=== PATIENT | male | born 1940 | race Caucasian/White ===

== ENCOUNTER 2020-12-25 17:45 | Emergency (ER) | payer MEDICARE, OTHER | END 2020-12-25 18:48 | disposition left against medical advice (07) | LOC: ER1 17:45 | DX: Z53.21 Procedure and treatment not carried out due to patient leaving prior to being seen by health care provider (principal) ==

== ENCOUNTER 2020-12-25 19:23 | Emergency (ER) | payer MEDICARE, OTHER | END 2020-12-25 19:55 | disposition left against medical advice (07) | LOC: ER1 19:23 | DX: Z53.21 Procedure and treatment not carried out due to patient leaving prior to being seen by health care provider (principal) ==

== ENCOUNTER 2021-12-14 10:46 | Emergency (ER) | payer MEDICARE, OTHER | END 2021-12-14 11:55 | disposition left against medical advice (07) | LOC: ER1 10:46 | DX: M79.81 Nontraumatic hematoma of soft tissue (principal); I25.10 Atherosclerotic heart disease of native coronary artery without angina pectoris; F17.220 Nicotine dependence, chewing tobacco, uncomplicated | CPT/HCPCS: 81001; 99283 ==

== ENCOUNTER 2021-12-17 23:25 | Inpatient (IN) | payer MEDICARE, OTHER ==
[~2021-12-17] VITALS: Ht 175.3 cm; Wt 90.7 kg
[2021-12-18 00:23] LABS: HEMOGLOBIN 15.7 gm/dl (14.0-17.5); RED BLOOD COUNT 4.97 M/UL (4.20-5.50); WHITE BLOOD COUNT 6.5 K/UL (4.5-11.0)
[2021-12-18 01:09] LABS: BUN/CREATININE RATIO 11 (0-10)
[2021-12-18] MEDS ORDERED: FEXOFENADINE H180 MG PO (11:27)
[2021-12-18] MEDS ORDERED: FOLIC ACID1 MG PO (11:27)
[2021-12-18] MEDS ORDERED: GEMFIBROZIL600 MG PO (11:28)
[2021-12-18] MEDS ORDERED: PRADAXA 150 MG150 MG PO (11:28)
[2021-12-18] MEDS ORDERED: LEVOTHYROXINE112 MCG PO (11:28)
[2021-12-18] MEDS ORDERED: HYDROCHLOROTHIA25 MG PO (11:28)
[2021-12-18] MEDS ORDERED: FLOMAX 0.4 MG0.4 MG PO (11:29)
[2021-12-18] MEDS ORDERED: NAPROXEN500 MG PO (11:29)
[2021-12-18] MEDS ORDERED: METOPROLOL TART25 MG PO (11:29)
[2021-12-19 04:52] LABS: HEMOGLOBIN 14.5 gm/dl (14.0-17.5); RED BLOOD COUNT 4.65 M/UL (4.20-5.50)
[2021-12-19 05:23] LABS: WHITE BLOOD COUNT 4.1 K/UL (4.5-11.0)
--- NOTE | 2021-12-19 09:56 | NUR ---
Bladder Scan on patient complete, patient had 82 ml of urine in his bladder. Dr. Laura made aware.
[2021-12-20 04:48] LABS: HEMOGLOBIN 15.4 gm/dl (14.0-17.5); RED BLOOD COUNT 4.95 M/UL (4.20-5.50); WHITE BLOOD COUNT 4.6 K/UL (4.5-11.0)
[2021-12-20 05:14] LABS: BUN/CREATININE RATIO 15 (0-10)
[2021-12-21 06:21] LABS: HEMOGLOBIN 16.1 gm/dl (14.0-17.5); RED BLOOD COUNT 5.12 M/UL (4.20-5.50); WHITE BLOOD COUNT 5.4 K/UL (4.5-11.0)
[2021-12-21 06:54] LABS: BUN/CREATININE RATIO 18 (0-10)
[2021-12-22 04:44] LABS: HEMOGLOBIN 15.6 gm/dl (14.0-17.5); RED BLOOD COUNT 5.14 M/UL (4.20-5.50); WHITE BLOOD COUNT 5.3 K/UL (4.5-11.0)
[2021-12-22 05:15] LABS: BUN/CREATININE RATIO 21 (0-10)
[2021-12-23 05:40] LABS: HEMOGLOBIN 15.6 gm/dl (14.0-17.5); RED BLOOD COUNT 5.15 M/UL (4.20-5.50)
[2021-12-23 05:56] LABS: BUN/CREATININE RATIO 18 (0-10)
[2021-12-24 05:17] LABS: HEMOGLOBIN 16.5 gm/dl (14.0-17.5); RED BLOOD COUNT 5.32 M/UL (4.20-5.50)
[2021-12-24 05:18] LABS: WHITE BLOOD COUNT 7.6 K/UL (4.5-11.0)
[2021-12-24 06:15] LABS: BUN/CREATININE RATIO 20 (0-10)
--- NOTE | 2021-12-25 04:18 | NUR ---
12/24/21 7PM SHIFT - ATTEMPTED NUMEROUS TIMES TO SEE IF PATIENT WOULD WEAR SHOES HAND SEWER AND SCDS. PT REFUSES EVERYTHING. HE IS PLEASANTLY CONFUSED AND REFUSES TO KEEP HIS GOWN ON. HE PULLS EVERYTHING OFF THROUGHOUT THE SHIFT. BED ALARM IS ACTIVE, PT HAS TRIED NUMEROUS TIMES TO GET OUT OF THE BED. HE ALSO PULLED HIS IV OUT. WILL CONTINUE TO MONITOR THE PATIENT FOR HIS SAFETY.
[2021-12-25 05:43] LABS: HEMOGLOBIN 16.6 gm/dl (14.0-17.5); RED BLOOD COUNT 5.24 M/UL (4.20-5.50)
[2021-12-25 05:44] LABS: WHITE BLOOD COUNT 9.9 K/UL (4.5-11.0)
[2021-12-25 06:23] LABS: BUN/CREATININE RATIO 18 (0-10)
--- NOTE | 2021-12-25 12:06 | NUR ---
reported to dr. khanna patient refused IV restarted and refused of IV antibiotics. dr. khanna verb she will see patient
--- NOTE | 2021-12-25 12:08 | NUR ---
reported to dr. rodriguez call received from telemetry of 9 beats of v tach- dr. rodriguez acknowledged no new order received
--- NOTE | 2021-12-25 13:32 | NUR ---
dr. rodriguez aware of patient low grade fever
--- NOTE | 2021-12-25 18:47 | NUR ---
Obtained in and out cath for urine specimen obtained 250cc urine. patient paulina well.
[2021-12-26 07:11] LABS: HEMOGLOBIN 16.5 gm/dl (14.0-17.5); RED BLOOD COUNT 5.25 M/UL (4.20-5.50); WHITE BLOOD COUNT 10.5 K/UL (4.5-11.0)
[2021-12-26 07:29] LABS: BUN/CREATININE RATIO 22 (0-10)
[2021-12-27 04:28] LABS: HEMOGLOBIN 16.7 gm/dl (14.0-17.5); RED BLOOD COUNT 5.28 M/UL (4.20-5.50); WHITE BLOOD COUNT 9.9 K/UL (4.5-11.0)
[2021-12-27 04:46] LABS: BUN/CREATININE RATIO 23 (0-10)
--- NOTE | 2021-12-28 12:21 | NUR ---
heard in the patient room for help from BLU gunn went in and seen patient slumped on the chair, activate LOAN UNDERWRITER @ 11:54. patient transferred from chair to bed, patient non responsive, pulse present, breathing with 022L in placed, vital signs 117/80. 022L 97% 83 heart rate 91. patient bs 234. dr. reza and dr. jacques pulmonologis on the floor and seen patient. received order to transfer patient to ICU and CTscan of the head with no contrast. @1209 patient responds to daughter, equal irrigator valve pipe of upper extrimities noted,open eyes mumbles. patient move both upper and lower extrimities. vital signs 117/80 83, 20, 91% with 022L via nasal cannula. with this care patient was not given any ativan, no narcotic and prescribed medications due in the morning. patient does not have IV access and md aware.
--- NOTE | 2021-12-28 13:01 | NUR ---
report given to Lissette ICU nurse
[2021-12-28 13:16] LABS: HEMOGLOBIN 17.3 gm/dl (14.0-17.5); RED BLOOD COUNT 5.44 M/UL (4.20-5.50); WHITE BLOOD COUNT 10.3 K/UL (4.5-11.0)
[2021-12-30 11:30] LABS: BUN/CREATININE RATIO 25 (0-10)
[2021-12-31 05:19] LABS: BUN/CREATININE RATIO 26 (0-10)
[2022-01-03 03:53] LABS: HEMOGLOBIN 17.1 gm/dl (14.0-17.5); RED BLOOD COUNT 5.5 M/UL (4.20-5.50); WHITE BLOOD COUNT 8.1 K/UL (4.5-11.0)
[2022-01-03 04:22] LABS: BUN/CREATININE RATIO 28 (0-10)
[2022-01-05] MEDS ORDERED: IPRAT-ALBUT 0.5-3 ML NEB (11:57)
[2022-01-05] MEDS ORDERED: QUETIAPINE FUMA25 MG PO (11:57)
[2022-01-05] MEDS ORDERED: ATIVAN 1MG TABLE1 MG PO (11:58)
--- NOTE | 2022-01-05 14:44 | NUR ---
ESTRELLA CALLED AT [facility]
--- NOTE | 2022-01-05 15:52 | NUR ---
DR. JAVIER STATES INSERT WHITEHEAD CATH AND SEND PT. TO LONG-TERM WITH IT FOR URINARY RETENTION
--- NOTE | 2022-01-05 17:13 | NUR ---
PT PULLING AT WHITEHEAD CATH THAT WAS RECENTLY PLACED AND NOW SOME BLEEDING NOTED IN TUBING.
== END 2022-01-05 17:42 | DRG 177 ==
LOC: ER1 23:25 → M/S 12-18 02:54 → CDU 12-18 02:54 → M/S 12-18 14:15 → CCU 12-28 16:10 → M/S 12-28 20:46
PROVIDERS: Emergency Medicine; Family Medicine; Internal Medicine; ADMIT Internal Medicine
PROC: 8E0ZXY6 Isolation (ICD-10-PCS; principal; 2021-12-18)
PROC: XW033E5 Introduction of Remdesivir Anti-infective into Peripheral Vein, Percutaneous Approach, New Technology Group 5 (ICD-10-PCS; 2021-12-18)
PROC: 3E0333Z Introduction of Anti-inflammatory into Peripheral Vein, Percutaneous Approach (ICD-10-PCS; 2021-12-18)
DX: U07.1 COVID-19 (principal); J12.82 Pneumonia due to coronavirus disease 2019; J96.01 Acute respiratory failure with hypoxia; G93.41 Metabolic encephalopathy; N17.9 Acute kidney failure, unspecified; I48.20 Chronic atrial fibrillation, unspecified; E87.6 Hypokalemia; E03.9 Hypothyroidism, unspecified; E66.9 Obesity, unspecified; E86.0 Dehydration; I11.9 Hypertensive heart disease without heart failure; R53.81 Other malaise; F03.90 Unspecified dementia, unspecified severity, without behavioral disturbance, psychotic disturbance, mood disturbance, and anxiety; Z79.899 Other long term (current) drug therapy; Z79.01 Long term (current) use of anticoagulants; Z68.29 Body mass index [BMI] 29.0-29.9, adult
CPT/HCPCS: 0240U; 36415; 36600; 51701; 70450; 70551; 71045; 80048; 80053; 80307; 81001; 82550; 82553; 82728; 82803; 82962; 83605; 83735; 83874; 84132; 84484; 85025; 85027; 86140; 87040; 87086; 93005; 93970; 94640; 94664; 94760; 96365; 96372; 96375; 96376; 97110; 97110-GP-CQ; 97162; 97164; 97166; 97168; 97530; 97530-GP-CQ; 99285; G0378; J0248; J0696; J1100; J1650; J2060; J2405; J7030

== ENCOUNTER 2022-02-05 14:00 | Inpatient (IN) | payer MEDICARE, OTHER ==
[~2022-02-05] VITALS: Ht 182.9 cm; Wt 101.8 kg
[~2022-02-05 14:00] MED LIST: ATIVAN 1MG TABLE1 MG PO; FEXOFENADINE H180 MG PO; FLOMAX 0.4 MG0.4 MG PO; FOLIC ACID1 MG PO; GEMFIBROZIL600 MG PO; HYDROCHLOROTHIA25 MG PO; IPRAT-ALBUT 0.5-3 ML NEB; LEVOTHYROXINE112 MCG PO; METOPROLOL TART25 MG PO; NAPROXEN500 MG PO; PRADAXA 150 MG150 MG PO; QUETIAPINE FUMA25 MG PO
[2022-02-05 15:26] LABS: HEMOGLOBIN 15.2 gm/dl (14.0-17.5); RED BLOOD COUNT 4.94 M/UL (4.20-5.50); WHITE BLOOD COUNT 5.3 K/UL (4.5-11.0)
[2022-02-05 15:49] LABS: BUN/CREATININE RATIO 12 (0-10)
[2022-02-05] MEDS ORDERED: MELATONIN3 MG PO (18:11)
[2022-02-05] MEDS ORDERED: QUETIAPINE FUMA50 MG PO (18:11)
[2022-02-05] MEDS ORDERED: TYLENOL EXTRA500 MG PO (18:11)
[2022-02-05] MEDS ORDERED: SENNA-DOCUSATE1 EACH PO (18:11)
[2022-02-06 07:00] LABS: HEMOGLOBIN 13.7 gm/dl (14.0-17.5)
[2022-02-06 07:06] LABS: RED BLOOD COUNT 4.42 M/UL (4.20-5.50); WHITE BLOOD COUNT 11.2 K/UL (4.5-11.0)
[2022-02-06 07:35] LABS: BUN/CREATININE RATIO 14 (0-10)
[2022-02-06 08:46] LABS: CANDIDA ALBICANS Not Detected (Negative); CANDIDA KRUSEI Not Detected (Negative); CANDIDA TROPICALIS Not Detected (Negative); ESCHERICHIA COLI Not Detected (Negative); HAEMOPHILUS INFLUENZAE Not Detected (Negative); KLEBSIELLA OXYTOCA Not Detected (Negative); KLEBSIELLA PNEUMONIAE Not Detected (Negative); KPC-CARBAPENEM-RESISTANCE GENE Not Detected (Negative); PROTEUS Not Detected (Negative); PSEUDOMONAS AERUGINOSA Not Detected (Negative); SERRATIA MARCESANS Not Detected (Negative); STAPHYLOCOCCUS Not Detected (Negative); STAPHYLOCOCCUS AUREUS Not Detected (Negative); STREP AGALACTIAE (GROUP B) Not Detected (Negative); STREP PYOGENES (GROUP A) Not Detected (Negative); STREPTOCOCCUS Not Detected (Negative); vanA/B (VANCOMYCIN RESIST GENE Not Detected (Negative)
[2022-02-07 02:48] LABS: HEMOGLOBIN 13.5 gm/dl (14.0-17.5); RED BLOOD COUNT 4.4 M/UL (4.20-5.50)
[2022-02-07 02:50] LABS: WHITE BLOOD COUNT 7.3 K/UL (4.5-11.0)
[2022-02-07 03:15] LABS: BUN/CREATININE RATIO 17 (0-10)
--- NOTE | 2022-02-09 00:14 | NUR ---
REVIEWED ASSESSMENT FROM PCU NURSE AT 1930, AGREE WITH ALL ASPECTS. ONLY CHANGE AT THIS TIME IS 02 AT 2 LITERS HAVE BEEN APPLIED PER NASAL CANNULA
[2022-02-10 02:50] LABS: HEMOGLOBIN 14.9 gm/dl (14.0-17.5); RED BLOOD COUNT 4.76 M/UL (4.20-5.50); WHITE BLOOD COUNT 7.7 K/UL (4.5-11.0)
[2022-02-10 03:02] LABS: BUN/CREATININE RATIO 14 (0-10)
[2022-02-10] MEDS ORDERED: LOPRESSOR 25 MG25 MG PO (15:18)
[2022-02-10] MEDS ORDERED: CEFDINIR300 MG PO (15:18)
== END 2022-02-11 12:40 | DRG 698 ==
LOC: ER1 14:00 → PROG CARE 20:56 → CDU 20:56 → PROG CARE 20:58 → M/S 02-08 20:16
PROVIDERS: Emergency Medicine; Internal Medicine; ADMIT Internal Medicine
PROC: 3E03329 Introduction of Other Anti-infective into Peripheral Vein, Percutaneous Approach (ICD-10-PCS; 2022-02-05)
PROC: B24BZZZ Ultrasonography of Heart with Aorta (ICD-10-PCS; principal; 2022-02-06)
DX: T83.518A Infection and inflammatory reaction due to other urinary catheter, initial encounter (principal); A41.59 Other Gram-negative sepsis; G93.41 Metabolic encephalopathy; N30.01 Acute cystitis with hematuria; N13.6 Pyonephrosis; N17.9 Acute kidney failure, unspecified; F03.90 Unspecified dementia, unspecified severity, without behavioral disturbance, psychotic disturbance, mood disturbance, and anxiety; I48.91 Unspecified atrial fibrillation; Z20.822 Contact with and (suspected) exposure to COVID-19; S09.90XA Unspecified injury of head, initial encounter; W06.XXXA Fall from bed, initial encounter; I10 Essential (primary) hypertension; E78.5 Hyperlipidemia, unspecified; N40.0 Benign prostatic hyperplasia without lower urinary tract symptoms; E03.9 Hypothyroidism, unspecified; E66.01 Morbid (severe) obesity due to excess calories; Z86.16 Personal history of COVID-19; Y84.6 Urinary catheterization as the cause of abnormal reaction of the patient, or of later complication, without mention of misadventure at the time of the procedure; Z98.890 Other specified postprocedural states; Z91.81 History of falling; Z79.899 Other long term (current) drug therapy; I25.10 Atherosclerotic heart disease of native coronary artery without angina pectoris; N32.0 Bladder-neck obstruction; Z68.30 Body mass index [BMI] 30.0-30.9, adult
CPT/HCPCS: ECHO; 36415; 51702; 70450; 71045; 80048; 80053; 81001; 82550; 82553; 82962; 83605; 83735; 84100; 84439; 84443; 84484; 85025; 85610; 85730; 86140; 87040; 87077; 87086; 87150; 87186; 93005; 93306; 94640; 94760; 96374; 96375; 97110; 97110-GP-CQ; 97162; 97166; 97530; 97530-GP-CQ; 99285; J0696; J2060; U0002

== ENCOUNTER 2022-02-15 10:08 | Observation (INO) | payer MEDICARE, OTHER ==
[~2022-02-15] VITALS: Ht 182.9 cm; Wt 98.7 kg
[~2022-02-15 10:08] MED LIST changes: +CEFDINIR300 MG PO; +LOPRESSOR 25 MG25 MG PO; +MELATONIN3 MG PO; +QUETIAPINE FUMA50 MG PO; +SENNA-DOCUSATE1 EACH PO; +TYLENOL EXTRA500 MG PO
[2022-02-15 11:23] LABS: HEMOGLOBIN 13.9 gm/dl (14.0-17.5); RED BLOOD COUNT 4.39 M/UL (4.20-5.50); WHITE BLOOD COUNT 7.3 K/UL (4.5-11.0)
[2022-02-15 12:02] LABS: BUN/CREATININE RATIO 12 (0-10)
[2022-02-16] MEDS ORDERED: METOPROLOL TART25 MG PO (16:41)
[2022-02-17 03:21] LABS: HEMOGLOBIN 14.7 gm/dl (14.0-17.5); RED BLOOD COUNT 4.65 M/UL (4.20-5.50); WHITE BLOOD COUNT 9.1 K/UL (4.5-11.0)
[2022-02-17 03:46] LABS: BUN/CREATININE RATIO 12 (0-10)
--- NOTE | 2022-02-17 18:16 | NUR ---
NOTIFIED DR RAY OF PATIENT CONTINUING TO HAVE URINARY RETENTION. NEW ORDER TO INSERT INDWELLING CATHETER AT THIS TIME. WILL CONTINUE TO MONITOR.
[2022-02-18 05:09] LABS: HEMOGLOBIN 13.7 gm/dl (14.0-17.5); RED BLOOD COUNT 4.41 M/UL (4.20-5.50); WHITE BLOOD COUNT 8.5 K/UL (4.5-11.0)
[2022-02-19 02:53] LABS: HEMOGLOBIN 14.1 gm/dl (14.0-17.5); RED BLOOD COUNT 4.52 M/UL (4.20-5.50); WHITE BLOOD COUNT 9.5 K/UL (4.5-11.0)
[2022-02-19 03:15] LABS: BUN/CREATININE RATIO 17 (0-10)
[2022-02-20 05:57] LABS: HEMOGLOBIN 14.1 gm/dl (14.0-17.5); RED BLOOD COUNT 4.53 M/UL (4.20-5.50); WHITE BLOOD COUNT 7.5 K/UL (4.5-11.0)
[2022-02-20 06:22] LABS: BUN/CREATININE RATIO 14 (0-10)
--- NOTE | 2022-02-20 11:47 | NUR ---
pt has attempted to get up 5 times this am, easily redirected that he has a parker catheter because this seems to be his main concern, family notified and will come sit with the patient. i have him double bed alarmed with fall risk supplies in place. he is across from nurses station.
[2022-02-22 03:21] LABS: HEMOGLOBIN 14.1 gm/dl (14.0-17.5); RED BLOOD COUNT 4.49 M/UL (4.20-5.50); WHITE BLOOD COUNT 7.6 K/UL (4.5-11.0)
[2022-02-22 03:36] LABS: BUN/CREATININE RATIO 15 (0-10)
[2022-02-23 02:59] LABS: HEMOGLOBIN 13.6 gm/dl (14.0-17.5); RED BLOOD COUNT 4.27 M/UL (4.20-5.50); WHITE BLOOD COUNT 7.9 K/UL (4.5-11.0)
[2022-02-23 03:26] LABS: BUN/CREATININE RATIO 17 (0-10)
--- NOTE | 2022-02-23 14:37 | NUR ---
REPORT GIVEN TO WALTER KNOTT AT THIS TIME.
[2022-02-24 06:07] LABS: HEMOGLOBIN 13.9 gm/dl (14.0-17.5); RED BLOOD COUNT 4.42 M/UL (4.20-5.50)
[2022-02-24 06:48] LABS: BUN/CREATININE RATIO 13 (0-10)
[2022-02-25 02:57] LABS: HEMOGLOBIN 13.8 gm/dl (14.0-17.5); RED BLOOD COUNT 4.39 M/UL (4.20-5.50); WHITE BLOOD COUNT 7.5 K/UL (4.5-11.0)
[2022-02-25 03:32] LABS: BUN/CREATININE RATIO 15 (0-10)
[2022-02-26 04:37] LABS: BUN/CREATININE RATIO 15 (0-10)
[2022-02-26 04:39] LABS: HEMOGLOBIN 14.2 gm/dl (14.0-17.5); RED BLOOD COUNT 4.51 M/UL (4.20-5.50); WHITE BLOOD COUNT 6.7 K/UL (4.5-11.0)
[2022-02-27 05:47] LABS: HEMOGLOBIN 13.6 gm/dl (14.0-17.5); RED BLOOD COUNT 4.32 M/UL (4.20-5.50); WHITE BLOOD COUNT 6.4 K/UL (4.5-11.0)
[2022-02-27 06:08] LABS: BUN/CREATININE RATIO 15 (0-10)
[2022-02-28 07:01] LABS: HEMOGLOBIN 13.7 gm/dl (14.0-17.5); RED BLOOD COUNT 4.38 M/UL (4.20-5.50); WHITE BLOOD COUNT 6.2 K/UL (4.5-11.0)
[2022-02-28 07:11] LABS: BUN/CREATININE RATIO 15 (0-10)
== END 2022-02-28 17:55 ==
LOC: ER1 10:08 → MED SURG 4 02-16 10:08 → PROG CARE 02-16 10:08 → MED SURG 4 02-17 09:45
PROVIDERS: Internal Medicine; Physician Assistant; Physician Assistant Medical; ADMIT Internal Medicine
DX: G93.49 Other encephalopathy (principal); F03.90 Unspecified dementia, unspecified severity, without behavioral disturbance, psychotic disturbance, mood disturbance, and anxiety; G93.41 Metabolic encephalopathy; A41.9 Sepsis, unspecified organism; N30.00 Acute cystitis without hematuria; N13.6 Pyonephrosis; B96.1 Klebsiella pneumoniae [K. pneumoniae] as the cause of diseases classified elsewhere; I48.91 Unspecified atrial fibrillation; N17.9 Acute kidney failure, unspecified; I10 Essential (primary) hypertension; E78.5 Hyperlipidemia, unspecified; N40.0 Benign prostatic hyperplasia without lower urinary tract symptoms; E03.9 Hypothyroidism, unspecified; U07.1 COVID-19; J12.82 Pneumonia due to coronavirus disease 2019; E66.01 Morbid (severe) obesity due to excess calories; Z68.29 Body mass index [BMI] 29.0-29.9, adult; Z79.899 Other long term (current) drug therapy
CPT/HCPCS: 36415; 80048; 80053; 83735; 83880; 85025; 85027; 93005; 96372; 97110; 97110-GP-CQ; 97162; 97166; 97530; 97530-GP-CQ; 99285; G0378; J2060; J3486; U0002